=== PATIENT | female | born 1995 | race Caucasian/White ===

== ENCOUNTER 2021-08-31 23:11 | Emergency (ER) | payer OTHER, SELFPAY ==
[2021-08-31 23:18] VITALS: BP 145/89; PULSE 90; RESP 16; TEMP 36.2; O2SAT 99; BMI 24.3
[2021-09-01 00:17] LABS: HCG Qualitative Urine. Negative (Negative)
[2021-09-01 00:19] LABS: Basophils % 0.6 %; Eosinophils # 0.2 10^3/uL (0.0-0.8); Eosinophils % 2.4 %; Hematocrit 39.6 % (37.0-47.0); Hemoglobin 13.3 g/dL (11.5-15.3); Lymphocytes # 2.5 10^3/uL (0.8-4.8); Mean Corpuscular HGB Conc 33.6 g/dL (30.0-36.0); Mean Corpuscular Hemoglobin 30.4 pg (28.0-34.0); Mean Corpuscular Volume 90.4 fl (81-99); Mean Platelet Volume 11.1 fL (7.4-10.4); Monocytes # 0.7 10^3/uL (0.2-0.9); Monocytes % 9.6 %; Neutrophils # 3.67 10^3/uL (1.8-7.7); Neutrophils % 52.3 %; Nucleated Red Blood Cells % 0 %; Platelet Count 289 10^3/cmm (130-400); Red Blood Count 4.38 10^6/uL (4.1-5.3); Red Cell Distribution Width 11.9 % (12.1-15.1)
[2021-09-01 00:32] LABS: Alanine Aminotransferase 14 U/L (0-33); Albumin Level 4.8 g/dL (3.5-5.2); Alkaline Phosphatase 46 IU/L (35-105); Anion Gap 15.6 (5-19); Aspartate Amino Transferase 18 U/L (0-32); Blood Urea Nitrogen 8 mg/dL (6-20); Calcium 9.9 mg/dL (8.5-10.5); Carbon Dioxide 21 mmol/L (22-29); Chloride 107 mmol/L (98-107); Globulin 3.3 g/dL (1.3-4.6); Glomerular Filtration Rate 120.8 mL/min (90-130); Glucose 90 mg/dL (65-115); Lipase 27 U/L (13-60); Osmolality Calculated 288 mOsm/kg (285-295); Potassium 3.6 mmol/L (3.5-5.1); Sodium 140 mmol/L (136-145); Total Bilirubin 0.2 mg/dL (0.15-1.2); Total Protein 8.1 g/dL (6.6-8.7)
[2021-09-01 00:34] LABS: Add Urine Microscopic? NO; Charge for UA Resulting for Rev
[2021-09-01 00:38] LABS: Bilirubin Urine Neg (Negative); Blood Urine Neg (Negative); Glucose Urine UA Norm (Normal); Ketones Urine Negative (Negative); Leukocyte Esterase Urine Negative (Negative); Nitrate Urine Negative (Negative); Protein Urine Neg (Negative); Specific Gravity, Urine 1.015 (1.005-1.030); Urine Appearance Clear (CLEAR); Urine Color Yellow (Yellow); Urobilinogen Urine Norm (Negative); pH Urine 7 (5-7)
--- NOTE | 2021-09-01 01:22 | W.ED.ABDPA2 ---
Documented by User: JACKIE Shelley 09/01/21 03:34 HPI - Abdominal Pain General: Chief Complaint: Abdominal Pain Stated Complaint: RT ovary pain Time Seen by Provider: 08/31/21 23:26 History of Present Illness: Patient patient is a 25-year-old female comes to the ED with right pelvic pain. Symptoms have been going on for the past couple days. Pain has been pretty mild up until this evening. She now rates the pain a 9 out of 10 and it starts in her right pelvic region and radiates over to her left. She has a history of ovarian cysts that have felt similar but this 1 seems more painful. Today she [facility] and they were unsure what it was and set her up for an ultrasound on Tuesday. This evening patient's pain got a lot worse and she did not think she could wait till Tuesday she came here to the ED. Denies any vaginal bleeding, vaginal discharge, dysuria, hematuria, nausea/vomiting, fevers or chills. Her last menstrual period was on August 10, 2021. Associated Symptoms: Denies chills, constipation, diarrhea, dysuria, fever(s), hematochezia, hematuria, nausea and vomiting Related Data: Date of Last Menstrual Period: 08/10/21 Review of Systems Const: Denies: fever(s), chills or fatigue Eyes: Denies: change in vision or eye discomfort ENMT: Denies: throat pain, odynophagia, nasal discharge or nasal congestion Card: Denies: chest pain, palpitations, edema, swelling of feet/ankles, dyspnea on exertion or orthopnea Resp: Denies: dyspnea, productive cough or non-productive cough GI: Denies: abdominal pain, nausea, vomiting, diarrhea, constipation or hematochezia : Reports: pelvic pain (bilateral ); Denies: flank pain, dysuria or hematuria Musc: Denies: neck pain, back pain or extremity swelling Skin/Breast: Denies: rash or new lesions Neuro: Denies: headache(s), numbness in extremities or weakness in extremities PFS ED PFSH: Medical History No pertinent family history Ovarian cyst Female Reproductive History: Date of last menstrual period: 08/10/21 Physical Exam Const: COMMON NORMALS: no acute distress, patient oriented x3, healthy appearing and alert GENERAL APPEARANCE: cooperative HENMT: COMMON NORMALS: normocephalic HEAD & SCALP: normocephalic MOUTH: Normal oral and palatal mucosa present THROAT: posterior oropharynx normal and uvula midline Neck/C-Spine: COMMON NORMALS: supple GENERAL: Yes normal visual inspection Resp: COMMON NORMALS: normal respiratory effort, No retractions, No use of accessory muscles and clear to auscultation bilaterally AUSCULTATION: clear to auscultation bilaterally Cardio: COMMON NORMALS: regular rate, regular rhythm, S1 normal heart sound present, S2 normal heart sound present, No gallops present (Cardio), No clicks present (Cardio), No murmurs present (Cardio) and Peripheral pulses 2+ throughout RATE: regular rate RHYTHM: regular rhythm HEART SOUNDS: S1 normal heart sound present and S2 normal heart sound present PERIPHERAL PULSES: Peripheral pulses 2+ throughout GI: COMMON NORMALS: Normal to inspection, nondistended, normoactive bowel sounds present, Soft to palpation, non-tender and no masses PALPATION: Yes Soft to palpation : COMMON NORMALS: Yes no CVA tenderness BLADDER/KIDNEY EXAM: Yes no CVA tenderness Back/Pelvis: COMMON NORMALS: no CVA tenderness Extremity: COMMON NORMALS: normal to inspection Neuro: COMMON NORMALS: patient oriented x3 SENSORIUM/ORIENTATION: Yes alert GAIT: Yes Normal gait present Skin: GENERAL SKIN EXAM: dry skin Course Vital Signs: Vital signs: Vital Signs Temperature 98.2 F 09/01/21 02:55 Pulse Rate 84 09/01/21 02:55 Respiratory Rate 18 09/01/21 02:55 Blood Pressure 127/74 09/01/21 02:55 Pulse Oximetry 99 09/01/21 02:55 MDM - Abdominal Pain Medical Decision Making Patient is a 25-year-old female comes to the ED with pelvic pain. She was seen by her registered nurse float pool doctor earlier today for same complaint and they set her up for an ultrasound on Tuesday. Patient's pain got significantly worse tonight so she came here to the ED for evaluation. Vitals are stable. Patient appears healthy and in no acute distress. No palpable abdominal tenderness. Rest of exam is benign. CBC and CMP were unremarkable. UA showed no blood or any signs of infection. hCG was negative. Lab Data I reviewed the patient's lab results. : 09/01/21 00:02 09/01/21 00:02 Labs/Radiology: Radiology Impressions Pelvis Ultrasound 09/01/21 01:28 IMPRESSION: Color Doppler Blood flow is demonstrated in both ovaries. However, the right ovary is enlarged relative to the left side. Findings are nonspecific but can be seen in torsion. ADDENDUM: 09/01/21 0430 THIS REPORT CONTAINS FINDINGS THAT MAY BE CRITICAL TO PATIENT CARE. The findings were verbally communicated by me to Dr. Medina via telephone conference at 4:28 AM CDT on 09/01/2021. The findings were acknowledged and understood. Laboratory Results WBC 7.0 10^3/uL (4.0-10.0) 09/01/21 00:02 RBC 4.38 10^6/uL (4.1-5.3) 09/01/21 00:02 Hgb 13.3 g/dL (11.5-15.3) 09/01/21 00:02 Hct 39.6 % (37.0-47.0) 09/01/21 00:02 MCV 90.4 fl (81-99) 09/01/21 00:02 MCH 30.4 pg (28.0-34.0) 09/01/21 00:02 MCHC 33.6 g/dL (30.0-36.0) 09/01/21 00:02 RDW 11.9 % (12.1-15.1) L 09/01/21 00:02 Plt Count 289 10^3/cmm (130-400) 09/01/21 00:02 MPV 11.1 fL (7.4-10.4) H 09/01/21 00:02 Neut % (Auto) 52.3 % 09/01/21 00:02 Lymph % (Auto) 35.0 % 09/01/21 00:02 [place] % (Auto) 9.6 % 09/01/21 00:02 Eos % (Auto) 2.4 % 09/01/21 00:02 Baso % (Auto) 0.6 % 09/01/21 00:02 Neut # (Auto) 3.67 10^3/uL (1.8-7.7) 09/01/21 00:02 Lymph # (Auto) 2.5 10^3/uL (0.8-4.8) 09/01/21 00:02 [place] # (Auto) 0.7 10^3/uL (0.2-0.9) 09/01/21 00:02 Eos # (Auto) 0.2 10^3/uL (0.0-0.8) 09/01/21 00:02 Baso # (Auto) 0.0 10^3/uL (0.0-0.1) 09/01/21 00:02 Nucleated RBC % (auto) 0 % 09/01/21 00:02 Nucleated RBCs # 0.0 /100WBC 09/01/21 00:02 Sodium 140 mmol/L (136-145) 09/01/21 00:02 Potassium 3.6 mmol/L (3.5-5.1) 09/01/21 00:02 Chloride 107 mmol/L (98-107) 09/01/21 00:02 Carbon Dioxide 21 mmol/L (22-29) L 09/01/21 00:02 Anion Gap 15.6 (5-19) 09/01/21 00:02 BUN 8 mg/dL (6-20) 09/01/21 00:02 Creatinine 0.6 mg/dL (0.5-0.9) 09/01/21 00:02 GFR Calculation 120.8 mL/min (90-130) 09/01/21 00:02 Glucose 90 mg/dL (65-115) 09/01/21 00:02 Calculated Osmolality 288 mOsm/kg (285-295) 09/01/21 00:02 Calcium 9.9 mg/dL (8.5-10.5) 09/01/21 00:02 Total Bilirubin 0.2 mg/dL (0.15-1.2) 09/01/21 00:02 AST 18 U/L (0-32) 09/01/21 00:02 ALT 14 U/L (0-33) 09/01/21 00:02 Alkaline Phosphatase 46 IU/L (35-105) 09/01/21 00:02 Total Protein 8.1 g/dL (6.6-8.7) 09/01/21 00:02 Albumin 4.8 g/dL (3.5-5.2) 09/01/21 00:02 Globulin 3.3 g/dL (1.3-4.6) 09/01/21 00:02 Lipase 27 U/L (13-60) 09/01/21 00:02 HCG, Qual Negative (Negative) 09/01/21 00:00 Urine Color Yellow (Yellow) 08/31/21 23:55 Urine Appearance Clear (CLEAR) 08/31/21 23:55 Urine pH 7 (5-7) 08/31/21 23:55 Ur Specific [place] 1.015 (1.005-1.030) 08/31/21 23:55 Urine Protein Neg (Negative) 08/31/21 23:55 Urine Glucose (UA) Norm (Normal) 08/31/21 23:55 Urine Ketones Negative (Negative) 08/31/21 23:55 Urine Blood Neg (Negative) 08/31/21 23:55 Urine Nitrate Negative (Negative) 08/31/21 23:55 Urine Bilirubin Neg (Negative) 08/31/21 23:55 Urine Urobilinogen Norm mg/dL (Negative) 08/31/21 23:55 Ur Leukocyte Esterase Negative (Negative) 08/31/21 23:55 Discharge Plan Discharge Patient Disposition: Home Clinical Impression: Pelvic pain Condition: Stable Prescriptions: New hydrocodone-acetaminophen 5-325 mg tablet 1 tab PO Q6H PRN (Reason: pain) Qty: 14 0RF ondansetron 4 mg tablet,disintegrating 4 mg PO Q6H PRN (Reason: nausea and vomiting) Qty: 14 0RF Discharge Orders: Discharge ED (Routine); Ordered 09/01/21 Ordered By: Lamar Medina Referrals: Jay Bryan MD [Physician] - 1-3 days Discharge Diet: Regular Discharge Activity: Increase activity as tolerated Patient Instructions: Pelvic Pain in Women (ED) Activity Restrictions/Additional Instructions: Follow-up with medical provider as directed in the next 3 to 5 days for reevaluation. Take [id number] Tylenol or Motrin for any pain. Return to the ER or your medical provider if condition worsens. Please read and understand discharge instructions. Thank you for choosing [facility] for your healthcare needs today. Please realize this is an emergency room and that we are providing you with a medical screening exam and this may not be complete and all inclusive of all the testing and or work up that you may need to determine your ailment or severity of your illness. It is very important that you follow up as instructed or that you return to the Emergency Department should you have concerns or if your condition changes or worsens in any way. Coding Level of Care Code ED Gang Drill Press Operator for Chg Fwd Exam Comprehensive Documented by User: Lamar Medina MD 09/01/21 04:41 HPI - Abdominal Pain General: Chief Complaint: Abdominal Pain Stated Complaint: RT ovary pain Time Seen by Provider: 08/31/21 23:26 PFSH ED PFSH: Medical History No pertinent family history Ovarian cyst Course Vital Signs: Vital signs: Vital Signs Temperature 98.2 F 09/01/21 02:55 Pulse Rate 84 09/01/21 02:55 Respiratory Rate 18 09/01/21 02:55 Blood Pressure 127/74 09/01/21 02:55 Pulse Oximetry 99 09/01/21 02:55 MDM - Abdominal Pain Medical Decision Making Patient is a 25-year-old female comes to the ED with pelvic pain. She was seen by her registered nurse float pool doctor earlier today for same complaint and they set her up for an ultrasound on Tuesday. Patient's pain got significantly worse tonight so she came here to the ED for evaluation. Vitals are stable. Patient appears healthy and in no acute distress. No palpable abdominal tenderness. Rest of exam is benign. CBC and CMP were unremarkable. UA showed no blood or any signs of infection. hCG was negative. Patient's ultrasound showed slightly enlarged ovary I spoke to Dr. Harris OB about this she does have good flow on the ultrasound no cyst did discuss the possibility of torsion patient here is in no pain at this time she has no signs of acute ovarian torsion we will get her follow-up with Dr. Harris recommended this week. I informed patient she has any increased to her pain she is return immediately. Lab Data : 09/01/21 00:02 09/01/21 00:02 Labs/Radiology: Radiology Impressions Pelvis Ultrasound 09/01/21 01:28 IMPRESSION: Color Doppler Blood flow is demonstrated in both ovaries. However, the right ovary is enlarged relative to the left side. Findings are nonspecific but can be seen in torsion. ADDENDUM: 09/01/21 0430 THIS REPORT CONTAINS FINDINGS THAT MAY BE CRITICAL TO PATIENT CARE. The findings were verbally communicated by me to Dr. Medina via telephone conference at 4:28 AM CDT on 09/01/2021. The findings were acknowledged and understood. Laboratory Results WBC 7.0 10^3/uL (4.0-10.0) 09/01/21 00:02 RBC 4.38 10^6/uL (4.1-5.3) 09/01/21 00:02 Hgb 13.3 g/dL (11.5-15.3) 09/01/21 00:02 Hct 39.6 % (37.0-47.0) 09/01/21 00:02 MCV 90.4 fl (81-99) 09/01/21 00:02 MCH 30.4 pg (28.0-34.0) 09/01/21 00:02 MCHC 33.6 g/dL (30.0-36.0) 09/01/21 00:02 RDW 11.9 % (12.1-15.1) L 09/01/21 00:02 Plt Count 289 10^3/cmm (130-400) 09/01/21 00:02 MPV 11.1 fL (7.4-10.4) H 09/01/21 00:02 Neut % (Auto) 52.3 % 09/01/21 00:02 Lymph % (Auto) 35.0 % 09/01/21 00:02 [place] % (Auto) 9.6 % 09/01/21 00:02 Eos % (Auto) 2.4 % 09/01/21 00:02 Baso % (Auto) 0.6 % 09/01/21 00:02 Neut # (Auto) 3.67 10^3/uL (1.8-7.7) 09/01/21 00:02 Lymph # (Auto) 2.5 10^3/uL (0.8-4.8) 09/01/21 00:02 [place] # (Auto) 0.7 10^3/uL (0.2-0.9) 09/01/21 00:02 Eos # (Auto) 0.2 10^3/uL (0.0-0.8) 09/01/21 00:02 Baso # (Auto) 0.0 10^3/uL (0.0-0.1) 09/01/21 00:02 Nucleated RBC % (auto) 0 % 09/01/21 00:02 Nucleated RBCs # 0.0 /100WBC 09/01/21 00:02 Sodium 140 mmol/L (136-145) 09/01/21 00:02 Potassium 3.6 mmol/L (3.5-5.1) 09/01/21 00:02 Chloride 107 mmol/L (98-107) 09/01/21 00:02 Carbon Dioxide 21 mmol/L (22-29) L 09/01/21 00:02 Anion Gap 15.6 (5-19) 09/01/21 00:02 BUN 8 mg/dL (6-20) 09/01/21 00:02 Creatinine 0.6 mg/dL (0.5-0.9) 09/01/21 00:02 GFR Calculation 120.8 mL/min (90-130) 09/01/21 00:02 Glucose 90 mg/dL (65-115) 09/01/21 00:02 Calculated Osmolality 288 mOsm/kg (285-295) 09/01/21 00:02 Calcium 9.9 mg/dL (8.5-10.5) 09/01/21 00:02 Total Bilirubin 0.2 mg/dL (0.15-1.2) 09/01/21 00:02 AST 18 U/L (0-32) 09/01/21 00:02 ALT 14 U/L (0-33) 09/01/21 00:02 Alkaline Phosphatase 46 IU/L (35-105) 09/01/21 00:02 Total Protein 8.1 g/dL (6.6-8.7) 09/01/21 00:02 Albumin 4.8 g/dL (3.5-5.2) 09/01/21 00:02 Globulin 3.3 g/dL (1.3-4.6) 09/01/21 00:02 Lipase 27 U/L (13-60) 03/22/22 00:02 HCG, Qual Negative (Negative) 09/01/21 00:00 Urine Color Yellow (Yellow) 08/31/21 23:55 Urine Appearance Clear (CLEAR) 08/31/21 23:55 Urine pH 7 (5-7) 08/31/21 23:55 Ur Specific [place] 1.015 (1.005-1.030) 08/31/21 23:55 Urine Protein Neg (Negative) 08/31/21 23:55 Urine Glucose (UA) Norm (Normal) 08/31/21 23:55 Urine Ketones Negative (Negative) 08/31/21 23:55 Urine Blood Neg (Negative) 08/31/21 23:55 Urine Nitrate Negative (Negative) 08/31/21 23:55 Urine Bilirubin Neg (Negative) 08/31/21 23:55 Urine Urobilinogen Norm mg/dL (Negative) 08/31/21 23:55 Ur Leukocyte Esterase Negative (Negative) 08/31/21 23:55 Discharge Plan Discharge Patient Disposition: Home Clinical Impression: Pelvic pain Condition: Stable Prescriptions: New hydrocodone-acetaminophen 5-325 mg tablet 1 tab PO Q6H PRN (Reason: pain) Qty: 14 0RF ondansetron 4 mg tablet,disintegrating 4 mg PO Q6H PRN (Reason: nausea and vomiting) Qty: 14 0RF Discharge Orders: Discharge ED (Routine); Ordered 09/01/21 Ordered By: Lamar Medina Referrals: Jay Bryan MD [Physician] - 1-3 days Discharge Diet: Regular Discharge Activity: Increase activity as tolerated Patient Instructions: Pelvic Pain in Women (ED) Activity Restrictions/Additional Instructions: Follow-up with medical provider as directed in the next 3 to 5 days for reevaluation. Take [id number] Tylenol or Motrin for any pain. Return to the ER or your medical provider if condition worsens. Please read and understand discharge instructions. Thank you for choosing [facility] for your healthcare needs today. Please realize this is an emergency room and that we are providing you with a medical screening exam and this may not be complete and all inclusive of all the testing and or work up that you may need to determine your ailment or severity of your illness. It is very important that you follow up as instructed or that you return to the Emergency Department should you have concerns or if your condition changes or worsens in any way. Coding Level of Care Code ED Gang Drill Press Operator for Jonathon Fwd Exam Comprehensive
--- NOTE | 2021-09-01 01:28 | USR_ITS ---
PROCEDURE INFORMATION: Exam: US Nonobstetric Pelvis; Complete Exam date and time: 09/01/2021 1:46 AM Age: 25 years old Clinical indication: Pelvic pain; Additional info: Right pelvic pain TECHNIQUE: Imaging protocol: Transabdominal pelvic nonobstetric ultrasound. Complete exam. Real time ultrasound with image documentation. COMPARISON: No relevant prior studies available. FINDINGS: Uterus: Endometrial stripe is 8 mm. The uterus measures 5.1 x 6.1 x 8.7 cm. Right ovary/adnexa: Normal ovarian blood flow. Right ovary is normal and measures 3.5 x 3 x 3.1 cm. Normal ovarian blood flow. Left ovary/adnexa: Left ovary is normal and measures 2.1 x 1.3 by 2.8 cm . Intraperitoneal space: No intraperitoneal fluid. Urinary bladder: Normal. US/US pelvic complete* [id number] IMPRESSION: Color Doppler Blood flow is demonstrated in both ovaries. However, the right ovary is enlarged relative to the left side. Findings are nonspecific but can be seen in torsion.
[2021-09-01 01:47] VITALS: RESP 18; O2SAT 99
[2021-09-01] MEDS: morphine 4 mg/mL SDV 1 mL IM (01:47)
[2021-09-01 01:48] VITALS: BP 137/74; PULSE 87; RESP 18; TEMP 36.2; O2SAT 99
[2021-09-01 02:55] VITALS: BP 127/74; PULSE 84; RESP 18; TEMP 36.8; O2SAT 99
[2021-09-01 04:44] VITALS: BP 109/53; PULSE 60; RESP 16; O2SAT 98
--- NOTE | 2021-09-01 11:04 | DCPLANNER ---
Addendum entered by Ramona Real 09/04/21 09:06: manager technical spoke with Yunior at the [facility], was told that clinic spoke with patient and offered to make a follow up appointment for patient. Patient stated that she would call the clinic when she was ready to schedule an appointment. Original Note: manager technical had message to schedule a follow up appointment for patient with [facility]. manager technical called the [facility], spoke with Yunior, gave clinic patients information. manager technical was told that patients information would be printed and reviewed. Clinic will call patient with appointment information.
== END 2021-09-01 04:44 | disposition home or self-care (01) ==
PROVIDERS: Emergency Provider Emergency Medicine
DX: R10.2 Pelvic and perineal pain (principal)
CPT/HCPCS: 36415; 76856; 80053; 81003; 81025; 83690; 85025; 96372; 99283; J2270